=== PATIENT | female | born 1970 | race Hispanic/Latino ===

== ENCOUNTER → 2018-03-16 | Outpatient (CLI) | payer MEDICARE ==
[~2018-03-16] MED LIST: CLON2TAB11 PO; DULO60CA44 PO; GABA-531 PO; PANT40TA25 PO
== END | disposition home or self-care (01) ==
LOC: RAH 08:45
PROVIDERS: ATTEND Family Medicine
DX: Z12.31 Encounter for screening mammogram for malignant neoplasm of breast (principal)
CPT/HCPCS: 77067

== ENCOUNTER → 2019-03-20 | Outpatient (CLI) | payer MEDICARE | END | disposition home or self-care (01) | LOC: RAH 09:39 | PROVIDERS: ATTEND Family Medicine | DX: Z12.31 Encounter for screening mammogram for malignant neoplasm of breast (principal) | CPT/HCPCS: 77067 ==

== ENCOUNTER → 2020-04-01 | Outpatient (CLI) | payer OTHER ==
[~2020-04-01] MED LIST changes: -PANT40TA25 PO; +PANT40TA54 PO
== END | disposition home or self-care (01) ==
LOC: RAH 12:53
PROVIDERS: ATTEND Family Medicine
DX: Z12.31 Encounter for screening mammogram for malignant neoplasm of breast (principal)
CPT/HCPCS: 77067

== ENCOUNTER → 2021-08-13 | Outpatient (CLI) | payer OTHER ==
[~2021-08-13] MED LIST changes: -DULO60CA44 PO; +DULO60CA45 PO
== END | disposition home or self-care (01) ==
LOC: RAH 08:23
PROVIDERS: ATTEND Internal Medicine
DX: K76.0 Fatty (change of) liver, not elsewhere classified (principal); R11.2 Nausea with vomiting, unspecified
CPT/HCPCS: 76700

== ENCOUNTER → 2021-08-16 | Outpatient (CLI) | payer OTHER | END | disposition home or self-care (01) | LOC: RAH 07:17 | PROVIDERS: ATTEND Internal Medicine | DX: R11.2 Nausea with vomiting, unspecified (principal) | CPT/HCPCS: 78264; A9541 ==

== ENCOUNTER → 2023-05-03 | Outpatient (CLI) | payer OTHER | END | disposition home or self-care (01) | LOC: RAH 04-12 09:03 | PROVIDERS: ATTEND Family Medicine | DX: Z12.31 Encounter for screening mammogram for malignant neoplasm of breast (principal); N63.11 Unspecified lump in the right breast, upper outer quadrant; N64.89 Other specified disorders of breast | CPT/HCPCS: 77067 ==

== ENCOUNTER → 2023-05-30 | Outpatient (CLI) | payer OTHER | END | disposition home or self-care (01) | LOC: RAH 13:40 | PROVIDERS: ATTEND Family Medicine | DX: N60.01 Solitary cyst of right breast (principal); R92.8 Other abnormal and inconclusive findings on diagnostic imaging of breast; R92.30 Dense breasts, unspecified | CPT/HCPCS: 76641; 77065 ==

== ENCOUNTER → 2023-11-07 | Outpatient (CLI) | payer OTHER | END | disposition home or self-care (01) | LOC: RAH 09:53 | PROVIDERS: ATTEND Internal Medicine | DX: K21.9 Gastro-esophageal reflux disease without esophagitis (principal); R10.9 Unspecified abdominal pain; R12 Heartburn | CPT/HCPCS: 78264; A9541 ==

== ENCOUNTER → 2024-12-23 | Outpatient (CLI) | payer OTHER ==
[2024-12-23] MEDS: REGADENOSON 0.4 MG/5 ML PF SYG IVP ONE (10:58)
--- NOTE | 2024-12-23 15:07 | HMCSR ---
APPROVED REPORT Height: 5 ft 1in Weight: 152 lbs TEST INDICATIONS Chest Pain The imaging protocol used to acquire images was Rest Tc-99m/stress Tc-99m 1 day Consent: The procedure was explained and understood by the patient. Informerd consent was witnessed Александр Garcia RN First, low dose rest was performed then high dose stress. RESTING DATA: The resting ekg shows: NSR Rest SPECT myocardial perfusion imaging was performed in supine position minutes following the intra venous injection of 11 mCi of Tc-99 Sestamibi. Time of rest injection: 08:50: Date: 12/23/2024 PHARMACOLOGIC STRESS: Pharmacologic stress test was performed by injecting regadenoson 0.4 mg IV push followed by the intra venous injection of 30 mCi of Tc-99 Sestamibi. Time of stress injection: 10:58: Date: 12/23/2024 Heart Rate at time of stress injection: 69 bpm. Gated Stress SPECT was performed 60 minutes after stress injection. The images were gated to evaluate regional wall motion and calculate left ventricular ejection fracti on. STRESS DETAILS Reason for Termination: Infusion complete Stress Symptoms: Fatigue Max HR Achieved: 98 bpm % of APMHR Achieved: 70 Max Blood Pressure: 122/73 mmHg Stress ECG: NSR ST Change: No. Study quality was fair. Lung uptake was Normal. Artifact: increased GI uptake LEFT VENTRICLE Size: The left ventricular size is normal. Systolic Function:The left ventricular systolic function is hyperdynamic. Wall Motion: No regional wall motion abnormalities noted. The left ventricular ejection fraction was calculated to be 89%.TID = 0.73. LV PERFUSION Small size moderate severity perfusion defect of the distal anterior wall however partial improvement in stress imaging. No ischemia. No infarction/scar. RV Size/Shape Not well visualized. IMPRESSION Equivocally normal nuclear stress test. Global LV Function: Hyperdynamic Stress ECG Summary: Normal LV Perfusion Summary: Normal Conclusion Small size moderate severity perfusion defect of the distal anterior wall however partial improvement in stress imaging. No ischemia. No infarction/scar. Stress LVEF 89%, LV hyperdynamic. No TID Results indicate low risk for cardiac events.
== END | disposition home or self-care (01) ==
LOC: RAH 08:24
PROVIDERS: ATTEND Internal Medicine Cardiovascular Disease
DX: R07.9 Chest pain, unspecified (principal)
CPT/HCPCS: 78452; 93017; J2785; A9500 ×2